=== PATIENT | female | born 2005 | race Caucasian/White ===

== ENCOUNTER 2024-03-01 16:41 | Emergency (ER) | payer OTHER ==
[~2024-03-01] VITALS: Ht 154.9 cm; Wt 71.8 kg
[2024-03-01 16:54] VITALS: TEMP 99
[2024-03-01] MEDS ORDERED: Cyclobenzaprine 10 MG TAB PO ONE (17:30)
[2024-03-01] MEDS ORDERED: Ibuprofen 600 MG TAB PO ONE (17:30)
[2024-03-01] MEDS ORDERED: Home Cyclobenzaprine 10 MG #2 TABS/PACK PO ONE (17:45)
[2024-03-01 18:24] VITALS: BP 118/78; PULSE 60
== END 2024-03-01 18:24 | disposition home or self-care (01) ==
LOC: COL.ER 16:41
DX: S70.01XA Contusion of right hip, initial encounter (principal); S80.811A Abrasion, right lower leg, initial encounter; S80.812A Abrasion, left lower leg, initial encounter; V89.2XXA Person injured in unspecified motor-vehicle accident, traffic, initial encounter; Y92.410 Unspecified street and highway as the place of occurrence of the external cause